=== PATIENT | female | born 1990 | race Caucasian/White ===

== ENCOUNTER 2018-05-08 17:48 | Inpatient (IN) | payer OTHER ==
[~2018-05-08] VITALS: Ht 172.7 cm; Wt 110.0 kg
[2018-05-15] MEDS ORDERED: OXYTOCIN 30U/ 0.9% NaCL 500ML 500 ML IV ONE (19:55)
[2018-05-15] MEDS ORDERED: D5%-LACTATED RINGERS 1,000 ML IV SCH (19:55)
[2018-05-15] MEDS ORDERED: FENTANYL PF 100 MCG/2ML IVPush PRN (20:00)
[2018-05-15] MEDS ORDERED: ONDANSETRON 2MG/ML, 2ML IV PRN (20:00)
[2018-05-15] MEDS ORDERED: FENTANYL PF 100 MCG/2ML IV PRN (20:00)
[2018-05-15] MEDS ORDERED: MISOPROSTOL 25 MCG TABLET VG PRN (20:00)
[2018-05-15] MEDS ORDERED: OXYcodone/APAP 5/325MG TABLET PO PRN ×2 (20:00)
[2018-05-15] MEDS ORDERED: MISOPROSTOL 200 MCG TABLET PR PRN (20:00)
[2018-05-15] MEDS ORDERED: ONDANSETRON 2MG/ML, 2ML IVPush PRN (20:00)
[2018-05-15] MEDS ORDERED: ACETAMINOPHEN 325 MG TABLET PO PRN (20:00)
[2018-05-15] MEDS ORDERED: RHOGAM FROM BLOOD BANK 1 NOTE EA IM/IV ONE (20:00)
[2018-05-15] MEDS ORDERED: CALCIUM CARBONATE 500 MG TAB.CHEW PO PRN (20:00)
[2018-05-15] MEDS ORDERED: TERBUTALINE 1 MG/ML, 1ML IVPush PRN (20:00)
[2018-05-15] MEDS: LACTATED RINGERS 1,000 ML IV SCH (20:05)
[2018-05-15] MEDS ORDERED: MISOPROSTOL 25 MCG TABLET ONE (20:11)
[2018-05-15] MEDS ORDERED: NEWBORN KIT ONE (20:11)
[2018-05-15 20:18] LABS: BASOPHILS # (AUTO) 0.11 x10^3/uL (0-0.1); BASOPHILS % (AUTO) 1 % (0-1); EOSINOPHILS # (AUTO) 0.08 x10^3/uL (0-0.4); EOSINOPHILS % (AUTO) 1 % (1-7); LYMPHOCYTES # (AUTO) 2.21 x10^3/uL (1-3.4); LYMPHOCYTES % (AUTO) 22 % (22-44); MD NO; MEAN CORPUSCULAR HGB CONC 33.9 g/dL (32.4-35.8); MEAN CORPUSCULAR VOLUME 91.6 fL (80-100); MEAN PLATELET VOLUME 7.1 fL (7.4-10.4); MONOCYTES # (AUTO) 0.47 x10^3/uL (0.2-0.8); MONOCYTES % (AUTO) 5 % (2-9); NEUTROPHILS # (AUTO) 7.14 x10^3/uL (1.8-6.8); NEUTROPHILS % (AUTO) 71 % (42-75); PLATELET COUNT 372 x10^3/uL (130-400); RED BLOOD COUNT 3.81 x10^6/uL (3.82-5.3); RED CELL DISTRIBUTION WIDTH 13.2 % (9.6-15.2)
[2018-05-16] MEDS: LACTATED RINGERS 1,000 ML IV SCH ×3 (04:53→15:28)
[2018-05-16] MEDS: OXYTOCIN 30U/ 0.9% NaCL 500ML 500 ML IV SCH ×3 (05:55→16:50)
[2018-05-16] MEDS ORDERED: FENTANYL/BUPIV./NS/PF 250 ML EPIDCONT SCH (07:20)
[2018-05-16] MEDS ORDERED: EPHEDRINE 50 MG/ML, 1ML ONE (08:16)
[2018-05-16] MEDS ORDERED: BUPIVACAINE 0.25% ONE (08:16)
[2018-05-16] MEDS: PRENATAL VIT/IRON/FA 1 EACH TABLET PO SCH (09:00)
[2018-05-16] MEDS ORDERED: OXYTOCIN 30U/ 0.9% NaCL 500ML 500 ML IV SCH (16:28)
[2018-05-16] MEDS ORDERED: OXYcodone IR 5MG TABLET PO PRN (16:30)
[2018-05-16] MEDS ORDERED: IBUPROFEN 600 MG TABLET PO PRN (16:30)
[2018-05-16] MEDS ORDERED: MISOPROSTOL 200 MCG TABLET PR PRN (16:30)
[2018-05-16] MEDS ORDERED: OXYcodone/APAP 5/325MG TABLET PO PRN (16:30)
[2018-05-16] MEDS ORDERED: ONDANSETRON 2MG/ML, 2ML IV PRN (16:30)
[2018-05-16] MEDS ORDERED: DOCUSATE 100 MG CAPSULE PO PRN (16:30)
[2018-05-16] MEDS ORDERED: ACETAMINOPHEN 325 MG TABLET PO PRN (16:30)
[2018-05-16] MEDS ORDERED: OXYTOCIN 30U/ 0.9% NaCL 500ML 500 ML ONE (16:45)
[2018-05-16] MEDS ORDERED: IBUPROFEN 600 MG TABLET ONE (16:45)
[2018-05-16] MEDS: IBUPROFEN 600 MG TABLET PO PRN (16:50)
[2018-05-16 18:05] VITALS: BP 119/79
[2018-05-16 19:35] VITALS: BP 112/73
[2018-05-16] MEDS ORDERED: DIPH,PERTUSS(ACELL),TET VAC/PF NC IM-VACC ONE ×2 (20:50→20:51)
[2018-05-17 00:05] VITALS: BP 111/79
[2018-05-17] MEDS: DOCUSATE 100 MG CAPSULE PO PRN ×2 (00:19→07:29)
[2018-05-17] MEDS: IBUPROFEN 600 MG TABLET PO PRN ×3 (00:19→16:25)
[2018-05-17] MEDS: OXYTOCIN 30U/ 0.9% NaCL 500ML 500 ML IV SCH ×2 (01:55→11:55)
[2018-05-17 04:36] LABS: MEAN CORPUSCULAR HEMOGLOBIN 30.5 pg (27.0-34.8); MEAN CORPUSCULAR HGB CONC 33.2 g/dL (32.4-35.8); MEAN CORPUSCULAR VOLUME 92.1 fL (80-100); MEAN PLATELET VOLUME 7.3 fL (7.4-10.4); PLATELET COUNT 309 x10^3/uL (130-400); RED BLOOD COUNT 3.25 x10^6/uL (3.82-5.3); RED CELL DISTRIBUTION WIDTH 13.6 % (9.6-15.2)
[2018-05-17 05:00] VITALS: BP 102/66
[2018-05-17 05:24] LABS: BASOPHILS # (AUTO) 0.01 x10^3/uL (0-0.1); BASOPHILS % (AUTO) 0 % (0-1); EOSINOPHILS # (AUTO) 0.06 x10^3/uL (0-0.4); EOSINOPHILS % (AUTO) 0 % (1-7); LYMPHOCYTES # (AUTO) 2.28 x10^3/uL (1-3.4); LYMPHOCYTES % (AUTO) 13 % (22-44); MD SCAN; MONOCYTES # (AUTO) 0.39 x10^3/uL (0.2-0.8); MONOCYTES % (AUTO) 2 % (2-9); NEUTROPHILS # (AUTO) 14.59 x10^3/uL (1.8-6.8); NEUTROPHILS % (AUTO) 84 % (42-75)
[2018-05-17] MEDS: PRENATAL VIT/IRON/FA 1 EACH TABLET PO SCH (07:28)
[2018-05-17 07:45] VITALS: BP 118/77
[2018-05-17] MEDS ORDERED: PRENATAL VIT/IRON/FA 1 EACH TABLET PO SCH (09:00)
[2018-05-17] MEDS ORDERED: OXYC-302 PO (12:49)
[2018-05-17] MEDS ORDERED: IBUP-1222 PO (12:49)
== END 2018-05-17 17:00 | disposition home or self-care (01) | DRG 807 ==
LOC: LDIP 05-15 19:48 → 2NW 05-16 18:02
PROVIDERS: ADMIT Obstetrics & Gynecology; ATTEND Obstetrics & Gynecology
PROC: 10E0XZZ Delivery of Products of Conception, External Approach (ICD-10-PCS; principal; 2018-05-15)
PROC: 10H07YZ Insertion of Other Device into Products of Conception, Via Natural or Artificial Opening (ICD-10-PCS; 2018-05-15)
PROC: 3E0R3BZ Introduction of Anesthetic Agent into Spinal Canal, Percutaneous Approach (ICD-10-PCS; 2018-05-15)
PROC: 00HU33Z Insertion of Infusion Device into Spinal Canal, Percutaneous Approach (ICD-10-PCS; 2018-05-15)
DX: O69.81X0 Labor and delivery complicated by cord around neck, without compression, not applicable or unspecified (principal); Z37.0 Single live birth; Z3A.41 41 weeks gestation of pregnancy
CPT/HCPCS: 36415; 85025; 86850; 86900; 90656; 90715; G0378; J3490; J2590; J3010; J7120

== ENCOUNTER 2020-07-24 15:52 | Inpatient (IN) | payer OTHER ==
[~2020-07-24] VITALS: Ht 172.7 cm; Wt 101.8 kg
[~2020-07-24 15:52] MED LIST: IBUP-1222 PO; OXYC1TAB14 PO
[2020-07-24 16:12] VITALS: BP 120/70
[2020-07-24] MEDS: LACTATED RINGERS 1,000 ML IV SCH ×2 (17:23→20:30)
[2020-07-24 17:28] LABS: BASOPHILS % (AUTO) 1 % (0-1); EOSINOPHILS % (AUTO) 1 % (1-7); LYMPHOCYTES % (AUTO) 21 % (22-44); MEAN CORPUSCULAR HEMOGLOBIN 31.1 pg (27.0-34.8); MEAN CORPUSCULAR HGB CONC 34.1 g/dL (32.4-35.8); MEAN PLATELET VOLUME 7.6 fL (7.4-10.4); MONOCYTES % (AUTO) 5 % (2-9); NEUTROPHILS % (AUTO) 73 % (42-75); PLATELET COUNT 309 x10^3/uL (130-400); RED BLOOD COUNT 3.88 x10^6/uL (3.82-5.3); RED CELL DISTRIBUTION WIDTH 13.1 % (9.6-15.2)
[2020-07-24] MEDS ORDERED: FENTANYL PF 100 MCG/2ML IV PRN (17:30)
[2020-07-24] MEDS ORDERED: ONDANSETRON 2MG/ML, 2ML IVPush PRN (17:30)
[2020-07-24] MEDS ORDERED: TERBUTALINE 1 MG/ML, 1ML IVPush PRN (17:30)
[2020-07-24] MEDS ORDERED: SODIUM CITRATE/CITRIC ACID 30 ML UDC PO PRN (17:30)
[2020-07-24] MEDS ORDERED: OXYTOCIN 30U/ 0.9% NaCL 500ML 500 ML IV ONE (17:30)
[2020-07-24] MEDS ORDERED: FENTANYL PF 100 MCG/2ML IVPush PRN (17:30)
[2020-07-24] MEDS ORDERED: D5%-LACTATED RINGERS 1,000 ML IV SCH (17:30)
[2020-07-24] MEDS ORDERED: TERBUTALINE 1 MG/ML, 1ML SQ PRN (17:30)
[2020-07-24] MEDS ORDERED: METOCLOPRAMIDE 5 MG/ML, 2ML IVPush PRN (17:30)
[2020-07-24 17:32] LABS: MD NO
[2020-07-24] MEDS ORDERED: NEWBORN KIT ONE (17:40)
[2020-07-24] MEDS ORDERED: LIDOCAINE 1%, 20ML ONE (17:41)
[2020-07-24] MEDS ORDERED: MISOPROSTOL 200 MCG TABLET ONE (17:41)
[2020-07-24] MEDS ORDERED: FENTANYL/BUPIV./NS/PF 250 ML EPIDCONT SCH (18:30)
[2020-07-24] MEDS ORDERED: NALOXONE 0.4 MG/ML, 1ML IVPush PRN (18:30)
[2020-07-24] MEDS ORDERED: LACTATED RINGERS 1,000 ML IVBOLUS PRN (18:30)
[2020-07-24] MEDS ORDERED: EPHEDRINE 50 MG/ML, 1ML IVPush PRN (18:30)
[2020-07-24] MEDS ORDERED: LACTATED RINGERS 1,000 ML IV SCH (18:30)
[2020-07-24] MEDS ORDERED: BUPIVACAINE 0.25% ONE (19:31)
[2020-07-24] MEDS ORDERED: OXYTOCIN 30U/ 0.9% NaCL 500ML 500 ML ONE (22:06)
[2020-07-24] MEDS ORDERED: ACETAMINOPHEN 325 MG TABLET PO PRN (23:00)
[2020-07-24] MEDS ORDERED: OXYcodone/APAP 5/325MG TABLET PO PRN (23:00)
[2020-07-24] MEDS ORDERED: MISOPROSTOL 200 MCG TABLET PR PRN (23:00)
[2020-07-24] MEDS ORDERED: RHOGAM FROM BLOOD BANK 1 NOTE EA IM/IV ONE (23:00)
[2020-07-24] MEDS: OXYTOCIN 30U/ 0.9% NaCL 500ML 500 ML IV SCH (23:00)
[2020-07-24] MEDS ORDERED: BISACODYL 10 MG SUPP PR PRN (23:00)
[2020-07-24] MEDS ORDERED: HYDROcodone/APAP 5/325 TABLET PO PRN (23:00)
[2020-07-24] MEDS: DOCUSATE 100 MG CAPSULE PO SCH (23:00)
[2020-07-24] MEDS ORDERED: ONDANSETRON 2MG/ML, 2ML IV PRN (23:00)
[2020-07-24 23:50] VITALS: BP 110/70
[2020-07-25] MEDS: IBUPROFEN 800 MG TABLET PO PRN (03:52)
[2020-07-25 04:00] VITALS: BP 109/69
[2020-07-25 07:45] VITALS: BP 118/73
[2020-07-25 08:04] LABS: BASOPHILS % (AUTO) 1 % (0-1); EOSINOPHILS % (AUTO) 0 % (1-7); LYMPHOCYTES % (AUTO) 14 % (22-44); MEAN CORPUSCULAR HEMOGLOBIN 31.3 pg (27.0-34.8); MEAN CORPUSCULAR HGB CONC 34.5 g/dL (32.4-35.8); MEAN PLATELET VOLUME 7.3 fL (7.4-10.4); MONOCYTES % (AUTO) 5 % (2-9); NEUTROPHILS % (AUTO) 79 % (42-75); PLATELET COUNT 275 x10^3/uL (130-400); RED BLOOD COUNT 3.25 x10^6/uL (3.82-5.3); RED CELL DISTRIBUTION WIDTH 13.2 % (9.6-15.2)
[2020-07-25 08:05] LABS: MD NO
[2020-07-25] MEDS: OXYTOCIN 30U/ 0.9% NaCL 500ML 500 ML IV SCH (08:14)
[2020-07-25] MEDS: DOCUSATE 100 MG CAPSULE PO SCH ×2 (08:47→21:00)
[2020-07-25] MEDS ORDERED: PRENATAL VIT/IRON/FA 1 EACH TABLET PO SCH (09:00)
[2020-07-25] MEDS: IBUPROFEN 200 MG TABLET PO PRN ×2 (12:25→18:34)
[2020-07-25 12:48] VITALS: BP 114/70
[2020-07-25 20:00] VITALS: BP 89/57
[2020-07-26] MEDS: DOCUSATE 100 MG CAPSULE PO SCH (02:26)
[2020-07-26] MEDS: IBUPROFEN 800 MG TABLET PO PRN (02:27)
[2020-07-26 08:00] VITALS: BP 108/62
[2020-07-26] MEDS ORDERED: IBUP-1223 PO (08:41)
[2020-07-26] MEDS ORDERED: DOCU-131 PO (08:41)
== END 2020-07-26 09:20 | disposition home or self-care (01) | DRG 768 ==
LOC: LDOP 15:52 → LDIP 17:15 → 2NW 23:42
PROVIDERS: ADMIT Obstetrics & Gynecology; ATTEND Obstetrics & Gynecology
PROC: 10E0XZZ Delivery of Products of Conception, External Approach (ICD-10-PCS; principal; 2020-07-26)
PROC: 0DQR0ZZ Repair Anal Sphincter, Open Approach (ICD-10-PCS; 2020-07-26)
PROC: 3E0R3BZ Introduction of Anesthetic Agent into Spinal Canal, Percutaneous Approach (ICD-10-PCS; 2020-07-26)
PROC: 00HU33Z Insertion of Infusion Device into Spinal Canal, Percutaneous Approach (ICD-10-PCS; 2020-07-26)
DX: O99.52 Diseases of the respiratory system complicating childbirth (principal); Z37.0 Single live birth; Z20.822 Contact with and (suspected) exposure to COVID-19; O70.20 Third degree perineal laceration during delivery, unspecified; Z3A.39 39 weeks gestation of pregnancy; J45.909 Unspecified asthma, uncomplicated
CPT/HCPCS: 36415; J3490; 84112; 85025; 86592; 86850; 86900; 87635; G0378; J2590; J3010; J7120